=== PATIENT | female | born 1945 | race Caucasian/White ===

== ENCOUNTER 2016-12-08 12:55 | Day surgery (SDC) | payer MEDICARE ==
[~2016-12-08] VITALS: Ht 167.6 cm; Wt 63.5 kg
[~2016-12-08 12:55] MED LIST: 0.9% Sodium Chloride 1,000 ML IV SCH; ASPI-628 PO; ATOR40TA69 PO; CHOL500011 PO; LISI40TA PO; METF500T4 PO; OMEP-113 PO; PROM25TA14 PO; RALO60TA13 PO; Sodium Chloride LOK Flush 10 mL Syringe IV PRN; VITA1CAP PO; fentaNYL-PF 50 mCg/mL 2 mL Inj IVPUSH PRN
[2016-12-08 13:17] VITALS: BP 151/86; PULSE 61; RESP 14; O2SAT 99
[2016-12-08 14:10] VITALS: BP 136/69; PULSE 67; RESP 14; O2SAT 98
[2016-12-08 14:21] VITALS: BP 129/55; PULSE 60; RESP 14; O2SAT 98
[2016-12-08 14:26] VITALS: BP 140/69; PULSE 59; RESP 14; O2SAT 98
--- NOTE | 2016-12-08 15:45 | ENDO ---
[address] [address] ENDOSCOPY PROCEDURE PATIENT: ABBIE JACKSON : 1945 MR#: [id number] ADMIT: 12/08/2016 JOB ID: [id number] DATE: 12/08/2016 PRIMARY PROVIDER: Renetta Machado MD PROCEDURE: Esophagogastroduodenoscopy. INDICATIONS: A 71-year-old female with a history of Joseph's status post Halo ablation in the fall of [address] Alejo. She has a history of short-segment Joseph's going back many years but to my review of the chart I did not see that she had never had any actual dysplasia. At his last followup surveillance EGD in November 2014 she had some inflamed junctional mucosa at the GE junction but no evidence of Joseph's and certainly no dysplasia. She is doing quite well on one and sometimes two omeprazole daily. She reports today for surveillance. EQUIPMENT: GIF H 180 J. SEDATION: Versed 3 mg and 75 mcg fentanyl. COMPLICATIONS: None identified. PROCEDURE INFORMATION: After the risks and benefits were explained, written and verbal informed consent was obtained. The patient was brought into the endoscopy suite and placed into the left lateral decubitus position. Sedation was achieved using the above-stated medications with the addition of oxygen via nasal cannula. The scope was introduced into the mouth through the bite block and advanced to the second portion of the duodenum. The scope was slowly withdrawn to carefully examine the mucosa for any defects or lesions. Retroflexed views were accomplished in the stomach, the stomach was decompressed, and the scope removed from the patient, who tolerated the procedure well. FINDINGS: 1. Duodenum: There was no significant mucosal pathology from the bulb through to the second portion. 2. Stomach: No ulcers, no mass lesions. No outlet obstruction. The mucosa was generally unremarkable throughout. Retroflexed views of the LES were rather unremarkable. Small sliding hiatal hernia. 3. Esophagus: The squamocolumnar junction correlated with the top of the gastric folds. The GEJ was at 34 cm from the incisors. No acute erosive changes, no strictures, no mass lesions, and no significant suggestion of recurrence of Joseph's mucosa. ENDOSCOPIC DIAGNOSIS: 1. Subtle sliding hiatal hernia. 2. Otherwise visually unremarkable esophagogastroduodenoscopy. RECOMMENDATIONS: Considering history of short-segment Joseph's and Halo ablation, even though Joseph's is not present visually at present, I think that surveillance would be appropriate and would recommend a repeat EGD in 2-3 years.
== END 2016-12-08 23:59 | disposition home or self-care (01) ==
LOC: END 12:55
PROVIDERS: ATTEND Internal Medicine Gastroenterology
DX: K22.70 Barrett's esophagus without dysplasia (principal); K44.9 Diaphragmatic hernia without obstruction or gangrene; I10 Essential (primary) hypertension; E11.9 Type 2 diabetes mellitus without complications; K21.9 Gastro-esophageal reflux disease without esophagitis; M81.0 Age-related osteoporosis without current pathological fracture; I25.10 Atherosclerotic heart disease of native coronary artery without angina pectoris; R35.0 Frequency of micturition; I25.2 Old myocardial infarction; Z79.82 Long term (current) use of aspirin; Z79.84 Long term (current) use of oral hypoglycemic drugs
CPT/HCPCS: 43235; G0500; J2250; J3010; J7030